=== PATIENT | male | born 1975 | race Caucasian/White ===

== ENCOUNTER 2023-04-11 15:42 | Emergency (ER) | payer OTHER, SELFPAY ==
[2023-04-11 15:48] VITALS: BP 111/69; PULSE 75; RESP 17; TEMP 36.6; O2SAT 94; BMI 37.3
[2023-04-11 15:51] VITALS: BP 119/72; PULSE 68; O2SAT 95
--- NOTE | 2023-04-11 16:06 | ED_ITS ---
HPI - Nausea/Vomiting/Diarrhea General: Chief complaint: Nausea/Vomiting/Diarrhea Stated complaint: N/V Dizzy Time Seen by Provider: 04/11/23 16:00 Source: patient Mode of arrival: ambulatory History of Present Illness: 47-year-old male presents to the emergency room with nausea vomiting some dizziness. All began this morning he does also relate he had a little bit of double vision while he was in route here he does not have any now. He denies difficulty speech or swallowing or gait. He denies hematochezia melena hemateme sis or coffee-ground emesis. He just generally does not feel well. No abdominal pain no dysuria urgency or frequency MD elicited complaint: nausea and vomiting Onset (ago): hour(s) Description of vomiting: food contents and watery Associated nausea: Yes Associated abdominal pain: No Exacerbating factors: none Relieving factors: none Associated symtoms: Reports nausea; Denies altered mental status, anxiety, bloating, change in vision, chest pain, cough, diaphoresis, decreased urine output, dizziness, dysuria, epistaxis, fatigue, fecal incontinence, fevers/chills, headache(s), anorexia, malaise, myalgias, numbness, palpitations, rash, short of breath, syncope, tenesmus, tinnitus or weakness Review of Systems Const: Denies: fever(s), chills, fatigue, malaise or diaphoresis Eyes: Denies: change in vision ENMT: Denies: tinnitus or epistaxis Card: Denies: chest pain, palpitations or syncope Resp: Denies: dyspnea, productive cough or non-productive cough GI: Reports: nausea and vomiting; Denies: abdominal pain, hematemesis, coffee ground emesis, bloating or fecal incontinence : Denies: dysuria Skin/Breast: Denies: rash or pruritus Neuro: Denies: headache(s) or dizziness Psych: Denies: anxiety Physical Exam Const: EXAM LIMITATIONS: no altered mental status GENERAL APPEARANCE: cooperative and comfortable ORIENTATION/CONSCIOUSNESS: Yes awake, Yes oriented to person, Yes oriented to place and Yes oriented to time HENMT: COMMON NORMALS: normocephalic, atraumatic and hearing grossly normal bilaterally HEAD & SCALP: normocephalic and atraumatic Resp: COMMON NORMALS: normal respiratory effort, No retractions, No use of accessory muscles and clear to auscultation bilaterally AUSCULTATION: clear t o auscultation bilaterally Cardio: COMMON NORMALS: regular rate, regular rhythm and No murmurs present (Cardio) RATE: regular rate RHYTHM: regular rhythm GI: COMMON NORMALS: Soft to palpation and No hepatosplenomegaly present AUSCULTATION: Yes normoactive bowel sounds PALPATION: Yes Soft to palpation, No Tenderness to palpation present (GI), No Guarding due to palpation present (GI) and Yes No hepatosplenomegaly present Extremity: COMMON NORMALS: normal to inspection, capillary refill normal, no clubbing, cyanosis or edema, no calf tenderness and no pedal edema Neuro: SENSORIUM/ORIENTATION: Yes oriented to person, Yes oriented to place and Yes oriented to time Skin: COMMON NORMALS: no rashes or lesions noted GENERAL SKIN EXAM: no rashes or lesions noted Course Vital Signs: Vital signs: Vital Signs Temperature 97.8 F 04/11/23 15:48 Pulse Rate 64 04/11/23 17:05 Respiratory Rate 17 04/11/23 15:48 Blood Pressure 105/61 04/11/23 17:05 Pulse Oximetry 94 04/11/23 17:05 Oxygen Delivery Me thod Room Air 04/11/23 17:05 MDM - Nausea/Vomiting/Diarrhea Medical Decision Making Labs reviewed patient is improved CMP CBC and UA are all normal. Fluids have helped resolve his symptoms will discharge home clinical diet 2 days Zofran as needed return if is worsening problems Medical Records I reviewed the patient's medical records. Lab Data I reviewed the patient's lab results. 04/11/23 15:55 04/11/23 15:55 Laboratory Results WBC 7.8 10^3/uL (4.0-10.0) 04/11/23 15:55 RBC 4.71 10^6/uL (4.1-5.3) 04/11/23 15:55 Hgb 14.5 g/dL (11.7-16.6) 04/11/23 15:55 Hct 43.5 % (42.0-52.0) 04/11/23 15:55 MCV 92.4 fl (80-94) 04/11/23 15:55 MCH 30.8 pg (28.0-34.0) 04/11/23 15:55 MCHC 33.3 g/dL (30.0-36.0) 04/11/23 15:55 RDW 12.6 % (12.1-15.1) 04/11/23 15:55 Plt Count 240 10^3/cmm (130-400) 04/11/23 15:55 MPV 9.7 fL (7.4-10.4) 04/11/23 15:55 Neut % (Auto) 75.5 % 04/11/23 15:55 Lymph % (Auto) 13.6 % 04/11/23 15:55 Bee % (Auto) 8.8 % 04/11/23 15:55 Eos % (Auto) 0.9 % 04/11/23 15:55 Baso % (Auto) 0.9 % 04/11/23 15:55 Neut # (Auto) 5.89 10^3/uL (1.8-7.7) 04/11/23 15:55 Lymph # (Auto) 1.1 10^3/uL (0.8-4.8) 04/11/23 15:55 Bee # (Auto) 0.7 10^3/uL (0.2-0.9) 04/11/23 15:55 Eos # (Auto) 0.1 10^3/uL (0.0-0.8) 04/11/23 15:55 Baso # (Auto) 0.1 10^3/uL (0.0-0.1) 04/11/23 15:55 Nucleated RBC % (auto) 0 % 04/11/23 15:55 Nucleated RBCs # 0.0 /100WBC 04/11/23 15:55 Sodium 139 mmol/L (136-145) 04/11/23 15:55 Potassium 4.6 mmol/L (3.5-5.1) 04/11/23 15:55 Chloride 106 mmol/L (98-107) 04/11/23 15:55 Carbon Dioxide 23 mmol/L (22-29) 04/11/23 15:55 Anion Gap 14.6 (5-19) 04/11/23 15:55 BUN 11 mg/dL (6-20) 04/11/23 15:55 Creatinine 1.0 mg/dL (0.7-1.2) 04/11/23 15:55 GFR Calculation 79.4 mL/min (90-130) L 04/11/23 15:55 Glucose 113 mg/dL (65-115) 04/11/23 15:55 Calculated Osmolality 288 mOsm/kg (285-295) 04/11/23 15:55 Calcium 9.3 mg/dL (8.5-10.5) 04/11/23 15:55 Total Bilirubin 0.2 mg/dL (0.15-1.2) 04/11/23 15:55 AST 14 U/L (0-40) 04/11/23 15:55 ALT 14 U/L (0-41) 04/11/23 15:55 Alkaline Phosphatase 100 U/L (40-130) 04/11/23 15:55 Total Protein 6.8 g/dL (6.6-8.7) 04/11/23 15:55 Albumin 4.3 g/dL (3.5-5.2) 04/11/23 15:55 Globulin 2.5 g/dL (1.3-4.6) 04/11/23 15:55 Lipase 13 U/L (13-60) 04/11/23 15:55 Lipase Cancelled 04/11/23 15:55 Urine Color Yellow (Yellow) 04/11/23 17:10 Urine Appearance Clear (CLEAR) 04/11/23 17:10 Urine pH 5 (5-7) 04/11/23 17:10 Ur Specific [place] 1.020 (1.005-1.030) 04/11/23 17:10 Urine Protein Neg (Negative) 04/11/23 17:10 Urine Glucose (UA) Norm (Normal) 04/11/23 17:10 Urine Ketones 1+ (Negative) H 04/11/23 17:10 Urine Blood Neg (Negative) 04/11/23 17:10 Urine Nitrate Negative (Negative) 04/11/23 17:10 Urine Bilirubin Neg (Negative) 04/11/23 17:10 Urine Urobilinogen Norm mg/dL (Negative) 04/11/23 17:10 Ur Leukocyte Esterase Negative (Negative) 04/11/23 17:10 Discharge Plan Discharge Patient Disposition: Home Clinical Impression: Gastroenteritis Condition: Stable Prescriptions: New ondansetron HCl 4 mg tablet 4 mg PO Q6H PRN (Reason: nausea and vomiting) Qty: 20 0RF Discharge Orders: Discharge ED (Routine); Ordered 04/11/23 Ordered By: Myke Daugherty Discharge Diet: Clear Liquid Discharge Activity: Increase activity as tolerated Patient Instructions: Gastroenteritis (ED), Opioid Safety, Pain Management Coding Level of Care Code ED Configuration Management Advisor for Colton Proctor
[2023-04-11 16:13] LABS: Basophils # 0.1 10^3/uL (0.0-0.1); Basophils % 0.9 %; Eosinophils # 0.1 10^3/uL (0.0-0.8); Eosinophils % 0.9 %; Hematocrit 43.5 % (42.0-52.0); Hemoglobin 14.5 g/dL (11.7-16.6); Lymphocytes # 1.1 10^3/uL (0.8-4.8); Lymphocytes % 13.6 %; Mean Corpuscular HGB Conc 33.3 g/dL (30.0-36.0); Mean Corpuscular Hemoglobin 30.8 pg (28.0-34.0); Mean Corpuscular Volume 92.4 fl (80-94); Mean Platelet Volume 9.7 fL (7.4-10.4); Monocytes # 0.7 10^3/uL (0.2-0.9); Monocytes % 8.8 %; Neutrophils # 5.89 10^3/uL (1.8-7.7); Neutrophils % 75.5 %; Nucleated Red Blood Cells % 0 %; Platelet Count 240 10^3/cmm (130-400); Red Blood Count 4.71 10^6/uL (4.1-5.3); Red Cell Distribution Width 12.6 % (12.1-15.1); White Blood Count 7.8 10^3/uL (4.0-10.0)
[2023-04-11] MEDS: sodium chloride 0.9% 1,000 ML 999 ML IV (16:13)
[2023-04-11 16:28] LABS: Alanine Aminotransferase 14 U/L (0-41); Albumin Level 4.3 g/dL (3.5-5.2); Alkaline Phosphatase 100 U/L (40-130); Anion Gap 14.6 (5-19); Aspartate Amino Transferase 14 U/L (0-40); Blood Urea Nitrogen 11 mg/dL (6-20); Calcium 9.3 mg/dL (8.5-10.5); Carbon Dioxide 23 mmol/L (22-29); Chloride 106 mmol/L (98-107); Globulin 2.5 g/dL (1.3-4.6); Glomerular Filtration Rate 79.4 mL/min (90-130); Glucose 113 mg/dL (65-115); Lipase 13 U/L (13-60); Osmolality Calculated 288 mOsm/kg (285-295); Potassium 4.6 mmol/L (3.5-5.1); Sodium 139 mmol/L (136-145); Total Bilirubin 0.2 mg/dL (0.15-1.2); Total Protein 6.8 g/dL (6.6-8.7)
[2023-04-11] MEDS: ondansetron 2 mg/ML SDV 2 mL 4 MG IVP (17:04)
[2023-04-11 17:05] VITALS: BP 105/61; PULSE 64; O2SAT 94
[2023-04-11 17:30] LABS: Add Urine Microscopic? NO; Charge for UA Resulting for Rev
[2023-04-11 17:53] LABS: Bilirubin Urine Neg (Negative); Blood Urine Neg (Negative); Glucose Urine UA Norm (Normal); Ketones Urine 1+ (Negative); Leukocyte Esterase Urine Negative (Negative); Nitrate Urine Negative (Negative); Protein Urine Neg (Negative); Urine Appearance Clear (CLEAR); Urine Color Yellow (Yellow); Urobilinogen Urine Norm (Negative); pH Urine 5 (5-7)
--- NOTE | 2023-04-21 15:45 | DCPLANNER ---
TCM called patient due to no primary care physician - no answer at this time.
== END 2023-04-11 18:30 | disposition home or self-care (01) ==
PROVIDERS: Physician Assistant; Emergency Provider Family Medicine
DX: K52.9 Noninfective gastroenteritis and colitis, unspecified (principal)
CPT/HCPCS: 80053; 81003; 83690; 85025; 96361; 96374; 99284; J2405; J7030

== ENCOUNTER → 2023-09-09 10:01 | Outpatient (BNVA) | payer OTHER, SELFPAY | PROVIDERS: PCP Emergency Medicine Emergency Medical Services; Visit Provider Student in an Organized Health Care Education/Training Program | DX: M25.561 Pain in right knee (principal); M25.562 Pain in left knee; M23.303 Other meniscus derangements, unspecified medial meniscus, right knee | CPT/HCPCS: 73560; 73565; 99204 ==

== ENCOUNTER 2023-10-21 10:20 | Day surgery (SDC) | payer OTHER, SELFPAY ==
[2023-10-21] VITALS (10 sets, daily range): BP systolic 102–130; BP diastolic 65–84; PULSE 53–86; RESP 13–20; TEMP 36.2–36.8; O2SAT 94–100
[2023-10-21] MEDS: scopolamine 1.5 Patch 1 PATCH TRANSDERMA (10:45)
[2023-10-21] MEDS: ketorolac 30 mg/mL INJ IVP (10:45)
[2023-10-21] MEDS: acetaminophen 1,000 MG/100 ML PIGGYBACK 400 MG IV (10:46)
[2023-10-21] MEDS: sodium chloride 0.9% 1,000 ML 30 ML IV (10:46)
[2023-10-21 10:54] LABS: Glucose Point of Care 107 mg/dL (70-110)
--- NOTE | 2023-10-21 11:06 | ANES.PREANE2 ---
Pre-Anesthetic Assessment Height/Weight: Height 1.78 m Weight 89.358 kg Temp Pulse Resp BP Pulse Ox O2 Del Method 98.3 F 70 18 130/84 100 Room Air 10/21/23 10:25 10/21/23 10:25 10/21/23 10:25 10/21/23 10:25 10/21/23 10:25 10/21/23 10:39 Operation Date: 10/21/23 11:50 Proposed Procedures p Knee Arthroscopy Knee Diagnostic And Meniscal Repair: RIGHT KNEE ARTHROSCOPY DIAGNOSTIC AND SURGICAL WITH MEDIAL MENISCAL REPAIR VS MENISCECTOMY(Right) - Aurelio Dowd DO Familial anesthetic complications: none Was Beta Felecia taken within 24 hours: N/A Was Clonidine taken within 24 hours: N/A Last intake: Intake Last Liquid Date 10/20/23 Last Liquid Time 19:00 Last Solid Date 10/20/23 Last Solid Time 19:00 Social Tobacco and No alcohol Exam alert, oriented x 3, clear to auscultation bilaterally and regular rate & rhythm Airway Mallampati: Class II Dentition: full GI Gastroesophageal Reflux Disease Anesthetic Plan ASA status: 2 Anesthesia: General Risk of > 500 ml blood loss (7ml/kg in children): No Medications/Allergies Home Medications Medication Instructions Recorded Confirmed Last Taken Type duloxetine 60 mg capsule,delayed 60 mg PO DAILY 09/09/23 10/20/23 10/20/23 History release esomeprazole magnesium 40 mg 40 mg PO BID 09/09/23 10/20/23 10/21/23 History capsule,delayed release (Nexium) gabapentin 800 mg tablet 800 mg PO DAILY 09/09/23 10/20/23 10/20/23 History hydrocodone 10 mg-acetaminophen 1 tab PO Q6H PRN prn 09/09/23 10/20/23 10/21/23 History 325 mg tablet lamotrigine 150 mg tablet 150 mg PO DAILY 09/09/23 10/20/23 10/20/23 History (Lamictal) lorazepam 2 mg tablet 2 mg PO DAILY PRN Anxiety 09/09/23 10/20/23 10/20/23 History tizanidine 4 mg capsule 4 mg PO QID PRN Muscle Spasm 09/09/23 10/20/23 10/21/23 History trazodone 100 mg tablet 50 mg PO DAILY 10/20/23 10/20/2323 History Allergies Allergy/AdvReac Type Severity Reaction Status Date / Time rabeprazole [From AcipHex] Allergy unknown Verified 10/20/23 11:07 oxycodone Allergy Mild Unknown Uncoded 10/21/23 10:30 Current Medications Generic Name Dose Route Start Last Admin Trade Name Freq PRN Reason Stop Dose Admin Sodium Chloride 1,000 mls @ 30 mls/hr 10/21/23 10:30 10/21/23 10:46 Sodium Chloride 0.9% IV 10/22/23 10:29 30 mls/hr .Q24H DANIEL Administration PFSH Anesthesia Social History (Updated 09/09/23 @ 10:15 by Crystal Yan LPN) Smoking and tobacco/nicotine status: current every day tobacco/nicotine user Alcohol intake: current Alcohol intake frequency: few times a month Data Anesthesia Cardiac Studies: No Data to Display
[2023-10-21] MEDS: midazolam 1 mg/mL INJ 2 mL 2 MG IVP (11:15)
[2023-10-21] MEDS: fentaNYL 50 mcg/mL INJ 2mL IVP (11:40)
--- NOTE | 2023-10-21 12:05 | P.HP_ITS ---
Same Day Surgery H&P Indication for Procedure/HPI DATE OF PROCEDURE: October 21, 2023 CHIEF COMPLAINT/INDICATIONFOR SURGICAL PROCEDURE: Right knee medial meniscus tear PREOP DIAGNOSIS: Right knee medial meniscus tear PLANNED PROCEDURE: Operation Date: 10/21/23 11:50 Proposed Procedures p Knee Arthroscopy Knee Diagnostic And Meniscal Repair: RIGHT KNEE ARTHROSCOPY DIAGNOSTIC AND SURGICAL WITH MEDIAL MENISCAL REPAIR VS MENISCECTOMY(Right) - Aurelio Cleburne, DO Medications/Allergies* Home Medications Medication Instructions Recorded Confirmed Type duloxetine 60 mg capsule,delayed 60 mg PO DAILY 09/09/23 10/20/23 History release esomeprazole magnesium 40 mg 40 mg PO BID 09/09/23 10/20/23 History capsule,delayed release (Nexium) gabapentin 800 mg tablet 800 mg PO DAILY 09/09/23 10/20/23 History hydrocodone 10 mg-acetaminophen 1 tab PO Q6H PRN prn 09/09/23 10/20/23 History 325 mg tablet lamotrigine 150 mg tablet 150 mg PO DAILY 09/09/23 10/20/23 History (Lamictal) lorazepam 2 mg tablet 2 mg PO DAILY PRN Anxiety 09/09/23 10/20/23 History tizanidine 4 mg capsule 4 mg PO QID PRN Muscle Spasm 09/09/23 10/20/23 History trazodone 100 mg tablet 50 mg PO DAILY 10/20/23 10/20/23 History Allergies/Adverse Reactions Allergy/AdvReac Type Severity Reaction Status Date / Time rabeprazole [From AcipHex] Allergy unknown Verified 10/20/23 11:07 oxycodone Allergy Mild Unknown Uncoded 10/21/23 10:30 Current Medications: Generic Name Dose Route Start Last Admin Trade Name Freq PRN Reason Stop Dose Admin Fentanyl 50 mcg 10/21/23 10:25 10/21/23 11:40 Fentanyl 50 Mcg/Ml Inj 2ml IVP 50 mcg Q10M PRN Administration Preop Pain Sodium Chloride 1,000 mls @ 30 mls/hr 10/21/23 10:30 10/21/23 10:46 Sodium Chloride 0.9% IV 10/22/23 10:29 30 mls/hr .Q24H DANIEL Administration Midazolam HCl 2 mg 10/21/23 10:25 10/21/23 11:15 Midazolam 1 Mg/Ml Inj 2 Ml IVP 2 mg Q5M PRN Administration Preop Anxiety Pertinent History/Comorbid Conditions* Social History Smoking and tobacco/nicotine status: current every day tobacco/nicotine user Alcohol intake: current Alcohol intake frequency: few times a month Pertinent Exam Findings alert, oriented x 3, operative site marked and procedure specific exam findings Right Knee exam -Visual inspection and right leg positive/negative joint effusion -Decreased range of motion secondary to. -Medial lateral joint line tenderness -Patient can wiggle toes and has a pedal pulse of 2+. Recommendations Surgery/Procedure today Other Plans: Plan to proceed with the OR today for a right knee diagnostic and surgical arthroscopy with partial medial meniscectomy versus repair Coding Level of Care Code Acute Code for Colton Proctor
[2023-10-21] MEDS: ceFAZolin 2,000 MG in sodium chloride 0.9% (plus) 50 ML 100 MG IV (12:21)
[2023-10-21] MEDS: lidocaine-epi 2% 20 mL INJ 40 ML INJECTION (13:07)
--- NOTE | 2023-10-21 13:18 | W.PM.BPON ---
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
--- NOTE | 2023-10-21 13:20 | P.OP_ITS ---
Operative Report Date of procedure: October 21, 2023 Surgeon: Aurelio Dowd DO Procedure: Preoperative diagnosis: Right knee medial meniscus tear Post-op diagnosis: Right?knee?medial meniscus tear Right?knee?extensive synovitis Right?knee?Medial chondromalacia Procedure done: Right knee diagnostic and surgical arthroscopy with partial medial meniscectomy Right knee diagnostic and surgical arthroscopy with extensive synovectomy Right knee diagnostic and surgical arthroscopy with medial compartment chondroplasty Surgeon: Aurelio Dowd DO Estimated blood loss: 2 Tourniquet: No tourniquet was used IV fluids: See anesthesia record Complications: None Findings: See operative report narrative Condition: stable Disposition: same day Brief History: Patient is a 48-year-old male with right?knee?pain.? Patient has failed conservative treatment who has been worked up for right??knee?pain in the outpatient setting. [facility] consistent with tear of the m edial meniscus. talked in the office about treatment options patient would like to proceed with a right?knee?diagnostic and surgical arthroscopy with partial medial meniscectomy.? Patient understand the ins and outs of the procedure the risk benefits complication alternatives to treatment options.? Understanding risk of surgery they agree to proceed with surgical intervention.? Patient understand this may not provide patient with complete symptomatic relief of? pain as patient does have some underlying arthritis.? Understanding this and patient agree to proceed with surgical intervention all questions answered. Procedure: Patient seen and evaluated in the preoperative holding area.? Consent was reviewed and signed with patient.? Correct extremity was then marked.? Patient seen evaluated Anesthesia Department once cleared for surgery patient was taken back to the operative suite.? Patient was transported onto the OR table in supine position.? All bony prominences well-padded patient was appropriate secured to the bed.? Once appropriately anesthetized a nonsterile tourniquet was applied to the right thigh.? The right lower extremity was then prepped and draped in standard orthopedic fashion.? Final timeout performed.? Patient received appropriate preoperative antibiotics. Patient received local anesthetic of lidocaine with epinephrine into the joint as well as around the portal sites.? No tourniquet was inflated A standard 2 portal vertical incision diagnostic and surgical arthroscopy of the right?knee?was performed in standard fashion.? Small stab incision made in the inferolateral portal introduced trocar and arthroscope into the suprapatellar pouch.? Suprapatellar pouch was subsequently visualized and found to have significant synovitis but no loose bodies.? Patient had noticeable significant inflamed infrapatellar fat pad and thickening hypertrophic within the patellofemoral compartment.? ?The medial gutter was free of loose bodies I then introduced the arthroscope into the medial compartment.? Within the medial compartment I then established my inferior medial working portal utilizing spinal needle outside in technique.? Once established I then visualized our articular cartilage of the medial compartment with a valgus stress.? Patient was found to have grade 2-3 chondromalacia throughout the medial compartment.? Next I inspected the meniscus.? With an arthroscopic probe was utilized to visual? all aspects of the meniscus.? Meniscal root was found to be intact.? Meniscus was found to be torn at the body to posterior horn junction.? I then subsequently introduced a basket forceps as well as arthroscopic shaver to perform a partial medial meniscectomy to stable meniscal tissue and then utilized a thermal wand to anneal the edges.? Next, I then performed a synovectomy of the medial compartment.? Given patient's chondromalacia there was areas of unstable articular cartilage and I subsequently performed a chondroplasty with arthroscopic shaver and thermal wand.? This completed medial compartment work. Next a introduced the arthroscope to the intercondylar notch.? PCL and ACL were intact. patient had significant thickening of the infrapatellar fat pad spanning into the medial and lateral compartments.? I then performed an extensive synovectomy with the arthroscopic shaver of the patellofemoral medial and lateral compartments as well as the intercondylar notch. Advance the?scope?into the retrocruciate space and no loose bodies were found. Next I introduced the arthroscope into the lateral compartment the lateral compartment was found to have grade 2 chondromalacia.? Lateral meniscus was found to be intact.? The root was intact.? Given the grade II chondromalacia there is no unstable cartilage pieces to perform chondroplasty.? This completed my work of the lateral compartment and then performed a synovectomy of the lateral compartment.? Next of the arthroscope was placed into the lateral gutter and this was free of loose bodies.? Finally I reintroduced the arthroscope into the patellofemoral compartment.? The patellofemoral was found to have grade 2 chondromalacia of the patellofemoral compartment.? At this point I utilized arthroscopic shaver as well as thermal wand to perform extensive synovectomy of the patellofemoral compartment. This completed my work of the patellofemoral space.? I then switch my portal sites to the medial working portal.? Completed the rest of my synovectomy and the rest of my examination arthroscopy was normal. All fluid was suctioned from the joint.? ?All instruments were withdrawn.? Portal sites were closed with interrupted nylon suture.? portal sites were then covered with with Xeroform 4 x 4's ABD Curlex and Isaac wrap.? Patient was then subsequently awakened from anesthesia and taken to PACU in stable condition. Disposition: Patient taken to PACU in stable condition recovering well.? Will receive appropriate discharge structure as well as pain medication post operatively as well as? DVT prophylaxis.we will have patient follow-up with us in the office in 2 weeks.? We will weightbearing as tolerated to the right lower extremity.? Patient understands and agrees with current plan.? All questions answered.
[2023-10-21] MEDS: HYDROcodone-acetaminophen 5-325 mg Tablet 1 TAB PO (14:05)
== END 2023-10-21 14:32 | disposition home or self-care (01) ==
PROVIDERS: PCP Emergency Medicine Emergency Medical Services; Visit Provider Student in an Organized Health Care Education/Training Program
PROC: (CPT 29870; principal; 2023-10-21 11:40)
DX: S83.241A Other tear of medial meniscus, current injury, right knee, initial encounter (principal); X58.XXXA Exposure to other specified factors, initial encounter; M65.9 Synovitis and tenosynovitis, unspecified; M94.261 Chondromalacia, right knee; F17.200 Nicotine dependence, unspecified, uncomplicated; K21.9 Gastro-esophageal reflux disease without esophagitis
CPT/HCPCS: 29876; 29881; 36416; 82962; J0131; J0690; J1100; J1885; J2250; J2405; J2704; J3010; J7030

== ENCOUNTER → 2023-11-09 09:10 | Outpatient (BNVA) | payer OTHER, SELFPAY | PROVIDERS: PCP Emergency Medicine Emergency Medical Services; Visit Provider Physician Assistant | DX: Z98.890 Other specified postprocedural states (principal); M54.9 Dorsalgia, unspecified | CPT/HCPCS: 36415; 72100; 80053; 81003; 85025; 99024; 99204 ==

== ENCOUNTER 2023-11-17 13:13 | Outpatient (RCR) | payer OTHER, SELFPAY | END 2023-11-21 23:59 | disposition home or self-care (01) | LOC: SPT 13:13 | PROVIDERS: PCP Emergency Medicine Emergency Medical Services; Visit Provider Physician Assistant | DX: Z98.890 Other specified postprocedural states (principal) | CPT/HCPCS: 97110; 97161 ==

== ENCOUNTER 2023-11-22 06:00 | Outpatient (RCR) | payer OTHER, SELFPAY | END 2023-12-22 23:59 | disposition home or self-care (01) | LOC: SPT 06:00 | PROVIDERS: PCP Emergency Medicine Emergency Medical Services; Visit Provider Physician Assistant | DX: S83.241D Other tear of medial meniscus, current injury, right knee, subsequent encounter (principal); X58.XXXD Exposure to other specified factors, subsequent encounter | CPT/HCPCS: 97110 ==

== ENCOUNTER → 2023-12-09 14:15 | Outpatient (BNVA) | payer OTHER, SELFPAY | PROVIDERS: PCP Emergency Medicine Emergency Medical Services; Visit Provider Family Medicine | DX: Z01.818 Encounter for other preprocedural examination (principal) | CPT/HCPCS: 80053; 81003; 85025 ==

== ENCOUNTER 2023-12-17 13:01 | Inpatient (IN) | payer OTHER, SELFPAY ==
[2023-12-17] VITALS (21 sets, daily range): BP systolic 100–146; BP diastolic 62–89; PULSE 78–103; RESP 12–18; TEMP 36.2–36.9; O2SAT 91–99; BMI 29.7
--- NOTE | 2023-12-17 | XR_ITS ---
WS: [id number] XR lumbar spine 2-3V* [id number] REASON FOR EXAM: plif, or pic FINDINGS: Posterior decompression with bilateral pedicle screws L3-S1. Interbody fusion devices at L5-S1 and L4 4 L5. Oblique pelvic screws at the S2 level. Interconnecting rods pelvis to L2. Surgical appliances are intact and appear in proper position and alignment. IMPRESSION: Posterior lumbar fusion without abnormality.
--- NOTE | 2023-12-17 08:06 | W.PM.OPSUD ---
Surgery/Procedure H&P Update DATE OF PROCEDURE: December 17, 2023 DATE H&P PERFORMED: 12/09/23 H&P UPDATE INFORMATION: I have reviewed H&P completed within last 30 days, I have examined patient prior to procedure and No changes to prior documentation PREOP DIAGNOSIS: Lumbar stenosis neurogenic claudication PLANNED PROCEDURE: Operation Date: 12/17/23 09:00 Proposed Procedures p Spinal Fusion PSF(Not Applicable) - Thien Peter DO s Posterior Lumbar Interbody Fusion PLIF(Not Applicable) - DO kathe Avendano Sacroiliac Joint Fusion SI Joint Fusion(Not Applicable) - Thien Peter DO
[2023-12-17] MEDS: sodium chloride 0.9% 1,000 ML 30 ML IV (08:22)
[2023-12-17] MEDS: methadone 10 mg Tablet PO (08:23)
[2023-12-17] MEDS: ceFAZolin 2,000 MG in sodium chloride 0.9% (plus) 50 ML 100 MG IV ×2 (08:49→17:10)
[2023-12-17] MEDS: thrombin 5,000 unit SDV 5000 UNIT XX (09:42)
[2023-12-17] MEDS: vancomycin 1,000 MG SDV 1000 MG XX (09:43)
[2023-12-17] MEDS: lidocaine-epi 2% 20 mL INJ INJECTION (09:44)
[2023-12-17] MEDS: heparin, porcine 1,000 unit/mL INJ 10 mL 10000 UNIT IRRIGATION (09:45)
--- NOTE | 2023-12-17 09:45 | ANES.PREANE2 ---
Pre-Anesthetic Assessment Height/Weight: Height 1.73 m Weight 88.904 kg Temp Pulse Resp BP Pulse Ox O2 Del Method 97.6 F 78 16 140/80 97 Room Air 12/17/23 07:54 12/17/23 07:54 12/17/23 07:54 12/17/23 07:54 12/17/23 07:54 12/17/23 07:55 Preop Diagnosis: Lumbar stenosis neurogenic claudication Operation Date: 12/17/23 09:00 Proposed Procedures p Spinal Fusion PSF(Not Applicable) - Thien Peter DO s Posterior Lumbar Interbody Fusion PLIF(Not Applicable) - Thien Peter DO s Sacroiliac Joint Fusion SI Joint Fusion(Not Applicable) - Thien Peter DO Familial anesthetic complications: none Was Beta Felecia taken within 24 hours: N/A Was Clonidine taken within 24 hours: N/A Last intake: Intake Last Liquid Date 12/16/23 Last Liquid Time 20:00 Last Solid Date 12/16/23 Last Solid Time 20:00 Social Tobacco and No alcohol Exam alert, oriented x 3 and regular rate & rhythm Airway Submandibular: within normal limits Cervical ROM: within normal limits Mallampati: Class II Dentition: chipped Pulmonary Chronic Obstructive Pulmonary Disease GI Gastroesophageal Reflux Disease Metabolic Hyperlipidemia Musc/skel Lower Back Pain and Osteoarthritis/DJD Neuropsych Anxiety and Depression Anesthetic Plan ASA status: 3 Anesthesia: General Other: A.line, discussed transfusion and ICU Medications/Allergies Home Medications Medication Instructions Recorded Confirmed Last Taken Type duloxetine 60 mg capsule,delayed 60 mg PO DAILY 09/09/23 12/16/23 12/16/23 History release esomeprazole magnesium 40 mg 40 mg PO BID 09/09/23 12/16/23 12/17/23 History capsule,delayed release (Nexium) gabapentin 800 mg tablet 800 mg PO DAILY 09/09/23 12/16/23 12/17/23 History hydrocodone 10 mg-acetaminophen 1 tab PO Q6H PRN prn 09/09/23 12/16/23 12/17/23 History 325 mg tablet buspirone 30 mg tablet 30 mg PO BID 12/09/23 12/16/23 12/16/23 History cetirizine 10 mg tablet 10 mg PO DAILY PRN allergies 12/09/23 12/16/23 Unknown History cholecalciferol (vitamin D3) 50 50 mcg PO DAILY 12/09/23 12/16/23 12/16/23 History mcg (2,000 unit) capsule lamotrigine 150 mg tablet 200 mg PO DAILY 12/09/23 12/16/23 12/16/23 History (Lamictal) lurasidone 60 mg tablet 60 mg PO DAILY 12/09/23 12/16/23 12/16/23 History methylphenidate HCl 5 mg tablet See Rx Instructions PO DAILY 12/09/23 12/16/23 12/16/23 History (Ritalin) montelukast 10 mg tablet 10 mg PO DAILY 12/09/23 12/16/23 12/16/23 History (Singulair) pravastatin 10 mg tablet 10 mg PO DAILY 12/09/23 12/16/23 12/16/23 History prazosin 1 mg capsule 3 mg PO .qhs 12/09/23 12/16/23 12/16/23 History trazodone 100 mg tablet 200 mg PO DAILY 12/09/23 12/16/23 12/16/23 History Allergies Allergy/AdvReac Type Severity Reaction Status Date / Time rabeprazole [From AcipHex] Allergy unknown Verified 12/16/23 16:32 oxycodone Allergy Mild itching Uncoded 12/16/23 16:32 Current Medications Generic Name Dose Route Start Last Admin Trade Name Freq PRN Reason Stop Dose Admin Sodium Chloride 1,000 mls @ 30 mls/hr 12/17/23 07:45 12/17/23 08:22 Sodium Chloride 0.9% IV 12/18/23 07:44 30 mls/hr .Q24H DANIEL Administration Lidocaine/Epinephrine 20 ml 12/17/23 09:44 12/17/23 09:44 Lidocaine-Epi 2% 20 Ml Inj INJECTION 12/17/23 09:45 10 ml ONCE ONE Administration Thrombin 5,000 unit 12/17/23 09:42 12/17/23 09:42 Thrombin 5,000 Unit Sdv XX 12/17/23 09:43 5,000 unit ONCE ONE Administration Vancomycin HCl 1,000 mg 12/17/23 09:43 12/17/23 09:43 Vancomycin 1,000 Mg Sdv XX 12/17/23 09:44 1,000 mg ONCE ONE Administration Protocol [facility] Anesthesia Social History Smoking and tobacco/nicotine status: current every day tobacco/nicotine user Alcohol intake: current Alcohol intake frequency: few times a month Data Anesthesia Cardiac Studies: No Data to Display
[2023-12-17] MEDS: fentaNYL 50 mcg/mL INJ 2mL IVP (13:15)
--- NOTE | 2023-12-17 13:30 | PM.OP ---
Operative Report Date of procedure: December 17, 2023 Pre-op diagnosis: Lumbar stenosis with neurogenic claudication Post-op diagnosis: same Procedure done: 1.?L5/S1 interbody fusion with posterolateral fusion 2. L4/5 interbody fusion with posterolateral decompression 3. Cage at L5/S1 4. cage at L4/5 5. Posterior fusion L3-pelvis 6.? Instrumentation L3-S1 7.? Lumbopelvic instrumentation 8. open right Sacral iliac fusion 9. open left sacral iliac fusion 10. L4/5 laminectomy with facetectomies to decompress nerves 11. L5/S1 laminectomy with facetectomies to decompress nerve 12. use of computer navigation / stereotactic spine 13. use of autograft from same incision 14. allograft 15. Bone marrow aspirate from right iliac crest Surgeon: Thien Peter DO Estimated blood loss (mL): 500 Procedure: 1.?L5/S1 interbody fusion with posterolateral fusion 2. L4/5 interbody fusion with posterolateral decompression 3. Cage at L5/S1 4. cage at L4/5 5. Posterior fusion L3-pelvis 6.? Instrumentation L3-S1 7.? Lumbopelvic instrumentation 8. open right Sacral iliac fusion 9. open left sacral iliac fusion 10. L4/5 laminectomy with facetectomies to decompress nerves 11. L5/S1 laminectomy with facetectomies to decompress nerve 12. use of computer navigation / stereotactic spine 13. use of autograft from same incision 14. allograft 15. Bone marrow aspirate from right iliac crest Patient is brought to the operative suite.? After undergoing anesthesia, the patient had neuro monitoring attached.? Patient was then placed in the prone position on the [place] table.? All areas of impingement were well-padded.? Patient was then prepped and draped in the normal sterile fashion.? Skin incision was then made over the L3 to the sacrum.? Subperiosteal dissection was made out to the transverse processes of L3 bilaterally,?L4 bilaterally L5 bilaterally and sacral ala bilaterally.? The [employer] bone marrow aspirate kit was used to aspirate bone marrow aspirate.? This was done by using the sharp probe to open up the bone.? Aspiration was performed and then the blunt probe was then used to dissect down to through the bone tunnel.? An aspirating well drawn back a millimeter approximately 20 cc of bone marrow aspirate was used.? Admixed with the allograft and autograft bone that will be used. Next tension was brought to placing the fiducial for the computer navigation.? 2 pins were placed into the right iliac crest.? The fiducial was attached.? The C-arm was brought in and information from the C arm was then linked to the computer used for placing the screws.? Next attention was brought to placing the pedicle screws.? This was done by using the gearshift probe.? The probe was used to identify the pedicle.? Then the pedicle feeler was used followed by placement of screw.? This was done at L3 bilaterally L4 bilaterally, L5 bilaterally and S1 bilaterally. Next attension was brought to placing the iliac screws.? This was done using the sacral ala iliac technique.? The gearshift probe linked to computer navigation was then placed through the sacral ala into the sacroiliac joint into the iliac crest.? Next the pedicle feeler was used followed by the computer navigated tap.? And then the screw was passed a 90 mm screw was placed on the right side and a 90 mm screw was placed on the left side.? Both the screws were 9.5 mm in diameter. Next attension was brought to performing the open and sacral iliac fusion.? This was done by again using the gearshift probe linked to computer navigation.? Followed by pedicle feeler followed by placing a wire and then the drill drilled over the wire and then bone graft was packed into the sacroiliac joint and into the drill hole.? And the sacroiliac screw was then placed.? This technique was done on both the right and left side. Next attention was brought to performing the laminectomy ofL4. This was done using the high-speed bur Kerrisons and curettes. Once the lamina was removed and then attention was brought to performing a partial facetectomy on the contralateral side. This was done again using the high-speed bur curettes and Kerrisons. The ligamentum flavum was taken down bilaterally from L4 to L5. Attention was then brought to the facet on the ipsilateral side. The facet was taken down. The L5 nerve was decompressed as it passed around the L5 pedicle. The laminectomy was done for purposes of decompressing the nerve as well as placement of the cage. The L4 nerve was identified as it traversed through the L4/5 foramen. The thecal sac was identified and retracted. The L4/5 disc base was identified. Using a knife the disc base was opened. And then sequential derian were placed. The first shaver was a 6 and the last shaver was a 9. Using a pituitary and down going curette the endplates were scraped and disc material was removed from the space. Once adequate decompression of the disc base was felt to be had. Osteoamp sponge was packed into the anterior aspect of the disc base. Then a size 10 cage from [employer] was placed after packing osteoamp into the cage. While placing the cage the thecal sac and L5 nerve was protected. C arm was used to ensure that the cages placed in the appropriate position. Next attention was brought to performing the laminectomy ofL5. This was done using the high-speed bur Kerrisons and curettes. Once the lamina was removed and then attention was brought to performing a partial facetectomy on the contralateral side. This was done again using the high-speed bur curettes and Kerrisons. The ligamentum flavum was taken down bilaterally from L5 to S1. Attention was then brought to the facet on the ipsilateral side. The facet was taken down. The S1 nerve was decompressed as it passed around the S1 pedicle. The laminectomy was done for purposes of decompressing the nerve as well as placement of the cage. The L5 nerve was identified as it traversed through the L5/S1 foramen. The thecal sac was identified and retracted. The L5/S1 disc base was identified. Using a knife the disc base was opened. And then sequential derian were placed. The first shaver was a 6 and the last shaver was a 7. Using a pituitary and down going curette the endplates were scraped and disc material was removed from the space. Once adequate decompression of the disc base was felt to be had. Osteoamp sponge was packed into the anterior aspect of the disc base. Then a size 8 cage from [place] was placed after packing osteoamp into the cage. While placing the cage the thecal sac and S1 nerve was protected. C arm was used to ensure that the cages placed in the appropriate position. Attention was then brought to attaching the rods to the screws placed in the L2 bilaterally, L3 bilaterally, L4 bilaterally, L5 bilaterally and S1 bilaterally.? This was then attached to the sacroiliac screw providing the lumbopelvic fixation.? Caps were torqued into position. Locking the construct in place. Wound was copiously irrigated and then attention was brought to decorticating the facets and transverse processes laterally.? Bone that was taken down from the lamina was used along with osteoamp fibers and sponges were packed into the lateral gutters along the facet joints.? This was done bilaterally. Wound was then closed in a layered fashion starting with the thoracolumbar fascia.? 0-vicryl was used the sub cutaneous tissue was closed with 2-0 vicryl and skin with 4-0 monocryl.? Glue was then used to seal the skin and a steril dressing was applied.? Patient was then placed in the supine position. The endotracheal tube was removed and patient was transferred to the PACU in stable condition.
--- NOTE | 2023-12-17 13:39 | ANE.PACU2 ---
Inpatient post-anesthesia follow up: Airway intact: Yes Vital signs: Temperature 97.6 F Pulse Rate 97 Respiratory Rate 16 Blood Pressure 113/71 Pulse Oximetry 96 Oxygen Delivery Me thod Nasal Cannula Oxygen Flow Rate 2 Fraction of Inspir ed Oxygen Hydration adequate: Yes Nausea and vomiting: No Pain level: 4 Mental status: Baseline
--- NOTE | 2023-12-17 13:40 | ANE.PACU2 ---
Inpatient post-anesthesia follow up: Airway intact: Yes Vital signs: Temperature 97.6 F Pulse Rate 97 Respiratory Rate 16 Blood Pressure 113/71 Pulse Oximetry 96 Oxygen Delivery Me thod Nasal Cannula Oxygen Flow Rate 2 Fraction of Inspir ed Oxygen Hydration adequate: Yes Nausea and vomiting: No Pain level: 3 Mental status: Baseline
[2023-12-17] MEDS: lactated ringers 1,000 ML 90 ML IV (14:08)
[2023-12-17] MEDS: morphine 4 mg/mL SDV 1 mL 2 MG IVP ×4 (14:08→22:00)
[2023-12-17] MEDS: HYDROcodone-acetaminophen 10-325 mg Tablet PO ×2 (14:27→21:27)
--- NOTE | 2023-12-17 16:04 | PC.NURSE ---
Pt hemovac emptied 250ml out and moderate sized clots noted. Notified Dr. Peter. No new orders at this time. Reports tolerable pain level.
[2023-12-17] MEDS: pantoprazole DR 40 mg Tablet PO (17:11)
[2023-12-17] MEDS: docusate sodium 100 mg Capsule PO (17:11)
[2023-12-17] MEDS: BuSPIRONE 10 mg Tablet 30 MG PO (17:11)
[2023-12-17] MEDS: prazosin 1 mg Capsule 3 MG PO (21:28)
[2023-12-18] VITALS (9 sets, daily range): BP systolic 112–129; BP diastolic 68–91; PULSE 94–104; RESP 16–18; TEMP 36.4–36.9; O2SAT 92–97
[2023-12-18] MEDS: morphine 4 mg/mL SDV 1 mL 2 MG IVP ×4 (00:22→22:04)
[2023-12-18] MEDS: lactated ringers 1,000 ML 90 ML IV ×2 (00:23→13:27)
[2023-12-18] MEDS: ceFAZolin 2,000 MG in sodium chloride 0.9% (plus) 50 ML 100 MG IV ×2 (00:24→08:10)
[2023-12-18] MEDS: HYDROcodone-acetaminophen 10-325 mg Tablet PO ×4 (02:23→16:09)
[2023-12-18] MEDS: lurasidone 20 mg Tablet 60 MG PO (08:07)
[2023-12-18] MEDS: atorvastatin 40 mg Tablet 20 MG PO (08:08)
[2023-12-18] MEDS: duloxetine 60 mg Capsule PO (08:08)
[2023-12-18] MEDS: BuSPIRONE 10 mg Tablet 30 MG PO ×2 (08:08→16:08)
[2023-12-18] MEDS: cholecalciferol (vitamin D3) 1,000 unit Tablet 2000 UNIT PO (08:09)
[2023-12-18] MEDS: lamoTRIgine 100 mg Tablet 200 MG PO (08:09)
[2023-12-18] MEDS: docusate sodium 100 mg Capsule PO ×2 (08:09→16:18)
[2023-12-18] MEDS: methylphenidate 10 mg Tablet PO (08:10)
[2023-12-18] MEDS: gabapentin 400 mg Capsule 800 MG PO (08:10)
[2023-12-18] MEDS: pantoprazole DR 40 mg Tablet PO ×2 (08:10→16:09)
[2023-12-18] MEDS: montelukast sodium 10 mg Tablet PO (08:10)
--- NOTE | 2023-12-18 11:27 | PM.PN ---
Subjective Subjective: Patient pain control with current pain medications. This point has been up with physical therapy twice is doing well but still having considerable pain. Hemovac drain still putting out drainage Vitals/I&O/Wt Last Vital Signs Temp 98.4 F 12/18/23 07:43 Pulse 95 12/18/23 07:43 Resp 16 12/18/23 07:43 BP 113/74 12/18/23 07:43 Pulse Ox 93 12/18/23 07:43 O2 Del Method Room Air 12/17/23 18:02 O2 Flow Rate 2 12/17/23 14:30 12/17/23 12/18/23 12/18/23 22:59 06:59 14:59 Intake Total 530 / 3580 972.5 / 4552.5 240 / 240 Output Total 2950 / 3650 2850 / 6500 100 / 100 Balance -2420 / -70 -1877.5 / -1947.5 140 / 140 Weight last 48 hrs Weight 220 lb 4.8 oz Weight 196 lb Weight 196 lb Physical Exam Narrative: Patient sitting up in chair doing well for the most part 5 5 strength bilateral lower extremities Urinary Catheter Management: Encinas: Cath Placed During This Visit: yes, but has since been removed by the nurse Reason for Continuing Indwelling Catheter: Decision to DC Catheter Urinary Catheter Date of Insertion: 12/17/23 Urinary Catheter Time of Insertion: 09:15 Date Urinary Catheter Removed: 12/18/23 Time Urinary Catheter Discontinued: 05:44 A&P Assessment and plan (1) Status post lumbar spinal fusion: Patient is postop day #1 lumbar fusion Up with physical therapy Keep drain in 1 more day Will reassess tomorrow. Will check an H&H as well. Attestations Medical Necessity Statement*: Pain control Coding Level of Care Code Acute Code for Chg Fwd Diagnoses Status post lumbar spinal fusion Z98.1
--- NOTE | 2023-12-18 12:47 | PC.CHAP ---
Pastoral Care Encounter/Spiritual Assessment Type of Contact [] Declined commercial administrator visit [] Patient/Family/Request visit [] Outpatient visit [] Follow-up visit [] Physician referral [] Code/Alert [x] Routine visit [] Staff referral [] Actively dying [] Patient sleeping [] Family support [] [] Out of room [] Palliative care [] [] Receiving care in room [] Pre-surgical visit [] Trauma [] Long length of stay [] ICU visit [] Other: Relational/Emotional Strength [x] Patient feels connected with others/family/visitors/staff [] Distress [] Loneliness/isolation [] Abandonment Spirituality of Patient [x] Person of Karena [] Attends Protestant of their Karena [x] Believes in Prayer [] Reads Bible or Yarsani materials [] There are Spiritual issues to be addressed Mgmt Analyst Interventions [x] Prayer [x] Active listening [] Non-anxious presence [] Spiritual/emotional support [] Crisis/trauma care [] Spiritual counseling [] Bereavement support [] Provided bereavement packet [] Provided Bible/devotional materials [] Provided toy/stuffed animal, coloring book to patient or family member [] Provided Communion [] Anointing/[place] [] Salvation [] Completed spiritual assessment [] Other: Impact on Illness or Injury [] Angry [] Fearful [] Anxious [] Often cries [] Exhaustion [] Unable to work [] Unable to attend synagogue [x] Unable to walk/stand [] Unable to read [] Unable to drive [] Unable to eat/drink [] Unable to sleep [] Unable to be with family [] Patient intubated [] Other: Summary patient had back surgery could move very little prayed with patient he mentioned that he was a in [employer]. Time spent with patient 5 min
[2023-12-18 13:04] LABS: Hematocrit 32.9 % (37-53)
[2023-12-18] MEDS: trazodone 100 mg Tablet 200 MG PO (21:59)
[2023-12-18] MEDS: prazosin 1 mg Capsule 3 MG PO (21:59)
[2023-12-18] MEDS: ketorolac 30 mg/mL INJ IVP (22:04)
[2023-12-19] VITALS: BP 125/80; PULSE 90; RESP 18; TEMP 36.4; O2SAT 94
[2023-12-19] MEDS: HYDROcodone-acetaminophen 10-325 mg Tablet PO ×2 (00:46→05:30)
[2023-12-19 04:58] VITALS: BP 100/65; PULSE 108; RESP 16; TEMP 36.4; O2SAT 90
[2023-12-19] MEDS: lactated ringers 1,000 ML 90 ML IV ×2 (05:30→09:19)
[2023-12-19 07:38] VITALS: BP 111/72; PULSE 116; RESP 16; TEMP 37.1; O2SAT 91
[2023-12-19] MEDS: montelukast sodium 10 mg Tablet PO (09:13)
[2023-12-19] MEDS: atorvastatin 40 mg Tablet 20 MG PO (09:13)
[2023-12-19] MEDS: lamoTRIgine 100 mg Tablet 200 MG PO (09:13)
[2023-12-19] MEDS: cholecalciferol (vitamin D3) 1,000 unit Tablet 2000 UNIT PO (09:14)
[2023-12-19] MEDS: BuSPIRONE 10 mg Tablet 30 MG PO (09:14)
[2023-12-19] MEDS: methylphenidate 10 mg Tablet PO (09:14)
[2023-12-19] MEDS: gabapentin 400 mg Capsule 800 MG PO (09:14)
[2023-12-19] MEDS: pantoprazole DR 40 mg Tablet PO (09:14)
[2023-12-19] MEDS: duloxetine 60 mg Capsule PO (09:15)
[2023-12-19] MEDS: docusate sodium 100 mg Capsule PO (09:15)
[2023-12-19] MEDS: lurasidone 20 mg Tablet 60 MG PO (09:15)
--- NOTE | 2023-12-19 10:32 | PM.DCS ---
Discharge Providers Date of Admission: 12/17/23 13:01 Date of Discharge: December 19, 2023 Attending Provider at Admission: Thien Peter DO Attending Provider at Discharge: Thien Peter DO Primary Care Provider: Juan Carlos Root DO Diagnoses at Discharge Discharge Diagnosis (1) Status post lumbar spinal fusion: Status: Acute Reason for Visit Reason for Visit: M54.50 Physical Exam Narrative: Patient in bed pain controlled been up with physical therapy. Urinary Catheter Management: Encinas: Cath Placed During This Visit: yes, but has since been removed by the nurse Reason for Continuing Indwelling Catheter: Decision to DC Catheter Urinary Catheter Date of Insertion: 12/17/23 Urinary Catheter Time of Insertion: 09:15 Date Urinary Catheter Removed: 12/18/23 Time Urinary Catheter Discontinued: 05:44 Discharge Data Studies Completed and Pending Completed Studies During Hospitalization Category Date Time Status XR lumbar spine 2-3V* [id number] Routine Exams 12/17/23 Completed Pending at discharge Category Date Time Status Retype for Patiets ABO/Rh Routine Lab 12/17/23 13:22 Ordered Laboratory Results Hgb 10.80 g/dL (11.27-16.99) L 12/18/23 12:57 Hct 32.9 % (37-53) L 12/18/23 12:57 Blood Type O Positive 12/17/23 08:10 Rho(D) Type Rh positive 12/17/23 08:10 Antibody Screen Negative 12/17/23 08:10 Vitals Last Vital Signs Temp 98.7 F 12/19/23 07:38 Pulse 116 H 12/19/23 07:38 Resp 16 12/19/23 07:38 BP 111/72 12/19/23 07:38 Pulse Ox 91 12/19/23 07:38 O2 Del Method Room Air 12/19/23 07:38 O2 Flow Rate 2 12/17/23 14:30 Discharge Plan Discharge Patient Disposition: Home Condition: Stable Prescriptions: Continued gabapentin 800 mg tablet 800 mg PO DAILY esomeprazole magnesium [Nexium] 40 mg capsule,delayed release(DR/EC) 40 mg PO BID hydrocodone-acetaminophen 10-325 mg tablet 1 tab PO Q6H PRN (Reason: prn) duloxetine 60 mg capsule,delayed release(DR/EC) 60 mg PO DAILY lamotrigine [Lamictal] 150 mg tablet 200 mg PO DAILY cetirizine 10 mg tablet 10 mg PO DAILY PRN (Reason: allergies) prazosin 1 mg capsule 3 mg PO .qhs methylphenidate HCl [Ritalin] 5 mg tablet See Rx Instructions PO DAILY Rx Instructions: 2 tab qam, 3 tab qpm buspirone 30 mg tablet 30 mg PO BID cholecalciferol (vitamin D3) 50 mcg (2,000 unit) capsule 50 mcg PO DAILY pravastatin 10 mg tablet 10 mg PO DAILY lurasidone 60 mg tablet 60 mg PO DAILY Rx Instructions: must administer with food (at least 350 calories) montelukast [Singulair] 10 mg tablet 10 mg PO DAILY trazodone 100 mg tablet 200 mg PO DAILY Discharge Orders: Discharge Order (Routine); Ordered 12/19/23 Ordered By: Thien Peter Other Ambulatory Orders: DME: Walker (Order) Location: None Selected Ordered By: Thien Peter Discharge Diet: Advance as tolerated Discharge Activity: Limit activity as instructed Patient Instructions: Opioid Safety Activity Restrictions/Additional Instructions: Call Wednesday to get prescription sent to [place]. Thank you for [facility] for your care! The following is a list of instructions, from your provider, to follow upon your discharge to ensure you have the optimal recovery from your recent injury orsurgery. Follow-up care is a jurado part of your treatment and safety. Be sure to make and go to all appointments, and call your doctor if you are having problems. If you do not already have a follow-up appointment made, call Dr. Peter office in the next 1-3 days to make follow up appointment for 1 weeks at [phone]. It is also a good idea to know your test results and keep a list of the medicines you take. Medications will be prescribed for you at your provider's discretion. These medications are to be used as instructed; if they are taken more often that prescribed they will not be refilled early and in most cases will not be refilled at all. > When a refill is needed,you should contact shanell culp 2-3 business days before your prescription runs out. Medications will NOT be refilled by automotive exhaust emissions technician providers after hours! > Many pain medications contain Tylenol (Acetaminophen). Do not consume more than 4,000 mg of Tylenol per day in total with any combination ofmedications. > Pain medications can cause constipation. Please use an over the counter stool softener as directed, while taking pain medications. Consulty our local pharmacist with questions or recommendations on stool softeners. If constipation persists, contact our office or your primary care provider. > While under our care,you are not to receive pain medications or other controlled substances from any other provider unless our office is notified and approves. Any attempts to do so will result in refusal to prescribe any further pain medications and possible dismissal from our practice. ? Your wound and/or dressing should remain clean and dry for 7 days after surgery. ? Showering is permitted, however we ask that you do not take a bath, sit in a whirlpool / Jacuzzi, or go swimming for 1 month. For only the first 2 days after surgery, lt wilt be necessary for you to cover your wound/dressing with plastic and tape to keep it dry. ? Walking is essential for the healing process after surgery. We would like you to slowly advance your walking. This should be done on relatively flat clear ground (inside or out) or can be done on a treadmill. Remember this goal does not have to happen all at once, slowly increase your distance and duration. This can be broken into more more than one walk per day as tolerated. Patients who walk as directed after surgery rarely require Physical Therapy. In the unlikely event this issue arises your provider will direct hospital staff to make the appropriate arrangements. ? No lifting over 5 pounds {a gallon of milk) or bending/twisting until further notice. Each of these activities places an unnecessary amount of stress onto the body and can impede the delicate healing process. > Instead of bending at the waist, keep your back straight and bend at the knees. > Instead of twisting your torso, keep your back straight and turn your entire body with your feet. ? You may sleep in any position which makes you comfortable. Many patients find comfort sleeping in a reclining chair. It is not abnormal to have difficulty sleeping for the first several weeks following your surgery. We recommend trying Benadry! or Tylenol PM as directed to help with your sleeping difficulties. Both medications are over the counter and available withoutprescription. ? NO SMOKING!!! Smoking dramatically increases the probability of developing postoperative wound infections. ? Common complaints after lumbar and/or thoracic spine surgery include, but are not limited to: numbness and/or tingling in the legs, pain around the incision and surrounding tissues, muscle spasms, or stiffness of the middle to low back. Contact our office if these symptoms persist or if an acute change occurs. ? No driving for the first 3-5days, and not while taking narcotics until seen at your follow-up appointment and cleared. There are no restrictions for riding on short trips, however if you take a longer trip, arrangements should be made to make regular stops to get out of the vehicle and stretch . ? Swelling is an unfortunate event that will take place with any surgery and is the primary source of your postoperative discomfort. While walking and regular approved activities helps control inflammation, there are additional steps you can take to minimizeswelling. > Place ice over the surgical site and surrounding tissue for twenty minutes, followed by applying a low/medium heat (heating pad) for an additional twenty minutes every 1-2 hours as needed for painrelief. > You may use of over the counter anti-inflammatory medications (Ibuprofen, Motrin, Aleve, Advil, etc) as directed on the package label. These types of medicines wm significantly reduce the amount of discomfort you experience after surgery from swelling. It should be noted that if you have and allergy to any of these medications, or a history of ulcers or kidney disease you should consult you primary care provider prior to starting these medications. Discharge Attestations Time Spent in Discharge Care*: less than 30 min Quality Metrics Clinical Quality Measures [ No reported AMI, CVA or VTE this stay] Coding Level of Care Code Acute Code for Chg Fwd Diagnoses Status post lumbar spinal fusion Z98.1
[2023-12-19 12:00] VITALS: BP 105/70; PULSE 115; RESP 18; TEMP 36.8; O2SAT 95
[2023-12-19 13:09] VITALS: BP 105/70; PULSE 115; RESP 18; TEMP 36.8; O2SAT 95
--- NOTE | 2023-12-19 13:09 | PC.NURSE ---
HEMOVAC REMOVED PER PROTOCOL. INTACT. TOLERATED WELL.
== END 2023-12-19 13:11 | disposition home or self-care (01) | DRG 455 ==
LOC: MEDSURG 12-18 09:01
PROVIDERS: Admitting Provider Orthopaedic Surgery; PCP Emergency Medicine Emergency Medical Services; Visit Provider Orthopaedic Surgery
PROC: 0SG00AJ Fusion of Lumbar Vertebral Joint with Interbody Fusion Device, Posterior Approach, Anterior Column, Open Approach (ICD-10-PCS; principal; 2023-12-17 08:30)
PROC: 0SG00AJ Fusion of Lumbar Vertebral Joint with Interbody Fusion Device, Posterior Approach, Anterior Column, Open Approach (ICD-10-PCS; CPT 22612; 2023-12-17 08:30)
PROC: 0SG00AJ Fusion of Lumbar Vertebral Joint with Interbody Fusion Device, Posterior Approach, Anterior Column, Open Approach (ICD-10-PCS; CPT 27280; 2023-12-17 08:30)
DX: M48.062 Spinal stenosis, lumbar region with neurogenic claudication (principal); F17.200 Nicotine dependence, unspecified, uncomplicated; J44.9 Chronic obstructive pulmonary disease, unspecified; K21.9 Gastro-esophageal reflux disease without esophagitis; E78.5 Hyperlipidemia, unspecified; F41.9 Anxiety disorder, unspecified; F32.A Depression, unspecified
CPT/HCPCS: 36415; 51702; 72100; 76000; 85014; 85018; 86850; 86900; 97116; 97161; C1713; C1762; J0690; J1100; J1644; J1885; J2270; J2371; J2405; J2704; J3010; J3370; J3490; J7030; J7120

== ENCOUNTER → 2023-12-21 09:20 | Outpatient (BNVA) | payer OTHER, SELFPAY | PROVIDERS: PCP Emergency Medicine Emergency Medical Services; Visit Provider Physician Assistant | DX: Z98.890 Other specified postprocedural states (principal) | CPT/HCPCS: 99024 ==

== ENCOUNTER → 2023-12-28 10:49 | Outpatient (BNVA) | payer OTHER, SELFPAY | PROVIDERS: PCP Emergency Medicine Emergency Medical Services; Visit Provider Orthopaedic Surgery | DX: Z98.1 Arthrodesis status (principal); Z47.89 Encounter for other orthopedic aftercare | CPT/HCPCS: 99024 ==

== ENCOUNTER → 2024-01-11 10:37 | Outpatient (BNVA) | payer OTHER, SELFPAY | PROVIDERS: PCP Emergency Medicine Emergency Medical Services; Visit Provider Podiatrist Foot & Ankle Surgery | DX: M72.2 Plantar fascial fibromatosis (principal); M21.6X1 Other acquired deformities of right foot; M21.6X2 Other acquired deformities of left foot | CPT/HCPCS: 99203 ==

== ENCOUNTER → 2024-01-25 08:33 | Outpatient (BNVA) | payer OTHER, SELFPAY | PROVIDERS: PCP Emergency Medicine Emergency Medical Services; Visit Provider Orthopaedic Surgery | DX: Z98.1 Arthrodesis status (principal) | CPT/HCPCS: 72100; 99024 ==

== ENCOUNTER → 2024-02-15 07:46 | Outpatient (BNVA) | payer OTHER, SELFPAY | PROVIDERS: PCP Emergency Medicine Emergency Medical Services; Visit Provider Physician Assistant | DX: Z98.890 Other specified postprocedural states (principal); M17.11 Unilateral primary osteoarthritis, right knee; M23.202 Derangement of unspecified lateral meniscus due to old tear or injury, unspecified knee | CPT/HCPCS: 20610; 73560; 73565; 99213 ==

== ENCOUNTER 2024-02-24 13:16 | Outpatient (RCR) | payer OTHER, SELFPAY | END 2024-03-21 23:59 | disposition home or self-care (01) | LOC: SPT 13:16 | PROVIDERS: PCP Emergency Medicine Emergency Medical Services; Visit Provider Physician Assistant | DX: M25.561 Pain in right knee (principal) | CPT/HCPCS: 97110; 97161 ==

== ENCOUNTER → 2024-03-07 07:41 | Outpatient (BNVA) | payer OTHER, SELFPAY | PROVIDERS: PCP Emergency Medicine Emergency Medical Services; Visit Provider Orthopaedic Surgery | DX: Z98.1 Arthrodesis status (principal) | CPT/HCPCS: 72100; 99024 ==

== ENCOUNTER 2024-03-22 06:00 | Outpatient (RCR) | payer OTHER, SELFPAY | END 2024-04-21 23:59 | disposition home or self-care (01) | LOC: SPT 06:00 | PROVIDERS: PCP Emergency Medicine Emergency Medical Services; Visit Provider Physician Assistant | DX: M25.561 Pain in right knee (principal) | CPT/HCPCS: 97110 ==

== ENCOUNTER 2024-03-30 07:38 | Outpatient (RCR) | payer OTHER, SELFPAY | END 2024-04-21 23:59 | disposition home or self-care (01) | LOC: SPT 07:38 | PROVIDERS: PCP Emergency Medicine Emergency Medical Services; Visit Provider Orthopaedic Surgery | DX: Z98.1 Arthrodesis status (principal) | CPT/HCPCS: 97110; 97161 ==

== ENCOUNTER 2024-04-22 06:00 | Outpatient (RCR) | payer OTHER, SELFPAY | END 2024-05-18 23:59 | disposition home or self-care (01) | LOC: SPT 06:00 | PROVIDERS: PCP Emergency Medicine Emergency Medical Services; Visit Provider Physician Assistant | DX: M25.561 Pain in right knee (principal) | CPT/HCPCS: 97110 ==

== ENCOUNTER → 2024-05-11 06:55 | Outpatient (BNVA) | payer OTHER, SELFPAY | PROVIDERS: PCP Emergency Medicine Emergency Medical Services; Visit Provider Student in an Organized Health Care Education/Training Program | DX: M17.11 Unilateral primary osteoarthritis, right knee; M23.305 Other meniscus derangements, unspecified medial meniscus, unspecified knee; Z98.890 Other specified postprocedural states | CPT/HCPCS: 99213 ==

== ENCOUNTER → 2024-06-01 08:46 | Outpatient (CLI) | payer OTHER, SELFPAY ==
--- NOTE | 2024-06-01 09:30 | MR_ITS ---
WS: [id number] MRI RIGHT KNEE NONCONTRAST TECHNIQUE: Axial PD, coronal PD fat sat, coronal PD, sagittal PD, and sagittal PD fat-sat images obta ined. CLINICAL INFORMATION: derangement of right knee COMPARISON: None. FINDINGS: Moderate tricompartmental arthritis RIGHT knee. Distal quadriceps and patellar tendons are intact. Hy pertrophic patella. Small suprapatellar effusion. ACL and PCL are intact. Moderate chondromalacia pat vandana. Medial and lateral patellar retinaculum are intact. Lobulated fusiform popliteal cyst measuring 1.9 x 5.2 cm. Normal medial and lateral collateral ligaments. Normal lateral meniscus. Chronic appearing tear of th e medial meniscus at the meniscal root with blunting. Peripheral extrusion of the medial meniscus. Ad vanced joint space narrowing with subchondral edema and grade IV chondromalacia. Subchondral edema in the medial femoral condyle. MR/MR knee RT wo con* [id number] IMPRESSION: 1. ACL and PCL are intact. 2. Moderate chondromalacia patella with small suprapatellar effusion. 3. Lobulated popliteal cyst measuring 1.9 x 5.2 cm. 4. Advanced joint space narrowing medial joint compartment with grade IV chond romalacia and a small amount of subchondral edema in the femoral condyle. 5. Chronic appearing tear with thinning and blunting of the medial meniscus wi th peripheral extrusion. Some of this may be due to prior partial meniscectomy. Outbridge grading: grade IV: full-thickness cartilage loss with underlying bone reactive changes
== END | disposition home or self-care (01) ==
PROVIDERS: Visit Provider Student in an Organized Health Care Education/Training Program
DX: M23.202 Derangement of unspecified lateral meniscus due to old tear or injury, unspecified knee (principal); M17.11 Unilateral primary osteoarthritis, right knee; M22.41 Chondromalacia patellae, right knee; M71.21 Synovial cyst of popliteal space [Baker], right knee
CPT/HCPCS: 73721